=== PATIENT | female | born 1970 | race Caucasian/White ===

== ENCOUNTER 2021-12-16 14:03 | Emergency (ER) | payer OTHER ==
[~2021-12-16] VITALS: Ht 167.6 cm; Wt 82.0 kg
[2021-12-16 14:07] VITALS: BP 197/127
[2021-12-16] MEDS ORDERED: IBUPROFEN 400MG TABLET PO ONE (15:00)
[2021-12-16] MEDS ORDERED: ACETAMINOPHEN 325MG TABLET PO ONE (15:00)
[2021-12-16] MEDS ORDERED: ACETAMINOPHEN 325MG TABLET PO NR (16:45)
[2021-12-16] MEDS ORDERED: IBUPROFEN 400MG TABLET PO NR (16:45)
[2021-12-16] MEDS ORDERED: TETANUS, DIPHTHERIA, PERTUSSIS VAC/PF 0.5ML (>10YR OLD) IM ONE (17:15)
== END 2021-12-16 19:05 | disposition home or self-care (01) ==
LOC: ER 15:06
DX: M79.601 Pain in right arm (principal); M25.562 Pain in left knee; M79.674 Pain in right toe(s); V49.9XXA Car occupant (driver) (passenger) injured in unspecified traffic accident, initial encounter; Y93.89 Activity, other specified; Y92.89 Other specified places as the place of occurrence of the external cause; Y99.8 Other external cause status
CPT/HCPCS: 73564; 73660; 90471; 90715; 99284